=== PATIENT | male | born 1970 | race Caucasian/White ===

== ENCOUNTER 2022-07-21 11:37 | Emergency (ER) | payer BC ==
[2022-07-21] MEDS ORDERED: TDAP (DIPHTH,PERTUSS(ACELL),TET VAC) 0.5 ML VIAL IMVAC ONE (12:32)
[2022-07-21] MEDS ORDERED: LIDOCAINE 1% 20 ML MDV ONE (12:33)
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
[2022-07-21 13:53] VITALS: TEMP 97.8
[2022-07-21 13:54] VITALS: O2SAT 100
[2022-07-21 13:56] VITALS: BP 131/91
== END 2022-07-21 13:46 | disposition home or self-care (01) ==
LOC: ER 11:37
PROC: 0HQ1XZZ Repair Face Skin, External Approach (ICD-10-PCS; principal; 2022-07-21)
DX: S01.81XA Laceration without foreign body of other part of head, initial encounter (principal); S02.0XXA Fracture of vault of skull, initial encounter for closed fracture; G93.89 Other specified disorders of brain; F17.210 Nicotine dependence, cigarettes, uncomplicated; Z23 Encounter for immunization; Z88.3 Allergy status to other anti-infective agents
CPT/HCPCS: 70450; 72125; 70486; 76377; 90471; 99283; 12013; J2001

== ENCOUNTER 2022-07-22 09:31 | Emergency (ER) | payer BC ==
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
--- NOTE | 2022-07-22 09:44 | EDPHYS ---
Physician Documentation [facility] Name: Shahbaz Hanley Age: 52 yrs Sex: Male : 1970 Arrival Date: 07/22/2022 Time: 09:32 Bed 7 Private MD: ED Physician Walker Ogden HPI: 07/22 09:40 This 52 yrs old Male presents to ER via Ambulatory with complaints of Nausea, jh7 Dizziness, Nose Bleed. 09:40 Patient was diagnosed with a skull fracture with pneumocephalus yesterday. He left [facility] due to not wanting to be transferred. Stated that this morning his headache, nausea, and dizziness have worsened since yesterday. Also reports that he developed a nosebleed this morning. He agrees to transfer at this time.. Historical: - Allergies: 09:41 Vancomycin; aa5 - Home Meds: 09:42 None [Active]; aa5 - PMHx: 09:42 None; aa5 - PSHx: 09:42 None; aa5 - Immunization history:: Adult Immunizations unknown, Last tetanus immunization: up to date. - Social history:: Smoking status: Patient reports the use of cigarette tobacco products, 1 1/2 packs a day . ROS: 09:40 Constitutional: Negative for fever, chills, and weight loss, Eyes: Negative for injury, jh7 pain, redness, and discharge, Cardiovascular: Negative for chest pain, palpitations, and edema, Respiratory: Negative for shortness of breath, cough, wheezing, and pleuritic chest pain, Back: Negative for injury and pain, MS/Extremity: Negative for injury and deformity, Skin: Negative for injury, rash, and discoloration. 09:40 ENT: Positive for nose bleed. 09:40 Abdomen/GI: Positive for nausea, Negative for abdominal pain, vomiting, diarrhea. 09:40 Neuro: Positive for dizziness, headache, Negative for altered mental status, numbness, syncope, tingling, visual changes. 09:40 All other systems are negative. Exam: 09:40 Constitutional: This is a well developed, well nourished patient who is awake, alert, jh7 and in no acute distress. Eyes: Pupils equal round and reactive to light, extra-ocular motions intact. Lids and lashes normal. Conjunctiva and sclera are non-icteric and not injected. Cornea within normal limits. Periorbital areas with no swelling, redness, or edema. ENT: Nares patent. No nasal discharge, no septal abnormalities noted. Tympanic membranes are normal and external auditory canals are clear. Oropharynx with no redness, swelling, or masses, exudates, or evidence of obstruction, uvula midline. Mucous membranes moist. Neck: Trachea midline, no thyromegaly or masses palpated, and no cervical lymphadenopathy. Supple, full range of motion without nuchal rigidity, or vertebral point tenderness. No Meningismus. Cardiovascular: Regular rate and rhythm with a normal S1 and S2. No gallops, murmurs, or rubs. Normal PMI, no JVD. No pulse deficits. Respiratory: Lungs have equal breath sounds bilaterally, clear to auscultation and percussion. No rales, rhonchi or wheezes noted. No increased work of breathing, no retractions or nasal flaring. Abdomen/GI: Soft, non-tender, with normal bowel sounds. No distension or tympany. No guarding or rebound. No evidence of tenderness throughout. Back: No spinal tenderness. No costovertebral tenderness. Full range of motion. MS/ Extremity: Pulses equal, no cyanosis. Neurovascular intact. Full, normal range of motion. 09:40 Head/face: Noted is hematoma, that is moderate, of the left eye. 09:40 Skin: 5 cm sutured laceration present on left forehead with no signs or symptoms of infection. No bleeding present.. 09:40 Neuro: Orientation: is normal, to person, place, time \T\ situation. Mentation: is normal, Memory: is normal, Cranial nerves: grossly normal, Cerebellar function: is grossly normal, Motor: is normal, Sensation: is normal, Gait: is steady, at a normal pace. Vital Signs: 09:33 BP 141 / 95; Pulse 70; Resp 16 S; Temp 98.2(TE); Pulse Ox 99% on R/A; Weight 77.11 kg aa5 (R); Height 5 ft. 9 in. (175.26 cm) (R); 10:28 BP 126 / 95; Pulse 63; Resp 16; Pulse Ox 99% ; ll1 11:32 BP 132 / 89; Pulse 62; Resp 16; Pulse Ox 99% ; ll1 09:33 Body Mass Index 25.10 (77.11 kg, 175.26 cm) aa5 NIH Stroke Scale Scores: 09:40 NIHSS Score: 0 7 MDM: 09:[address] [facility] 10:18 Differential diagnosis: Pneumocephalus, skull fracture. Data reviewed: vital signs, [facility] nurses notes, lab test result(s), radiologic studies, CT scan. Consideration of Admission/Observation Patient was transferred for higher level of care. Management of patient was discussed with the following: Research Development Manager: Dr. Franz, neurosurgery. Counseling: I had a detailed discussion with the patient and/or guardian regarding: the historical points, exam findings, and any diagnostic results supporting the discharge/admit diagnosis, the need to transfer to another facility, for higher level of care, [facility] does not immediately have the required specialist. ED course: The patient was transferred to [facility] for neurosurgery. His case was discussed with Dr. Franz and she requested transfer under Dr. Pearce, neurosurgery. 07/22 09:40 Order name: CBC with Diff [facility] 07/22 09:40 Order name: BMP [facility] 07/22 09:40 Order name: PT-INR [facility] 07/22 10:00 Order name: CBC with Automated Diff; Complete Time: 10:09 EDMS 07/22 10:04 Order name: Protime (+INR); Complete Time: 10:09 EDMS 07/22 10:11 Order name: Basic Metabolic Panel; Complete Time: 10:12 EDMS 07/22 09:40 Order name: CT Head Brain wo Cont [facility] 07/22 09:52 Order name: IV Start; Complete Time: 09:53 ll1 07/22 10:20 Order name: CT; Complete Time: 10:21 EDMS Administered Medications: 09:53 Drug: Zofran (Ondansetron) 4 mg Route: IVP; Site: right forearm; ll1 10:27 Follow up: Response: No adverse reaction; Nausea is decreased ll1 Disposition: 13:38 Co-signature as Attending Physician, Walker Ogden MD I agree with the assessment and kdr plan of care. Disposition Summary: 07/22/22 09:43 Transfer Ordered Transfer Location: [place] [id number] Reason: Higher level of care [facility] Condition: Fair [facility] Problem: new [facility] Symptoms: have worsened [facility] Accepting Physician: Dr. Paerce Neurosurgery(07/22/22 11:32) ll1 Diagnosis - Pneumocephalus [facility] - Skull fracture [facility] Forms: - Medication Reconciliation Form [facility] - SBAR form [facility] NIH Stroke Scale - NIH Stroke Score Date: 07/22/2022 Time: 09:40 Total Score = 0 1a. Level of Consciousness (LOC) - 0(Alert) 1b. Level of Consciousness (LOC) (Month \T\ Age) - 0(Both) 1c. LOC Commands (Open \T\ Closes Eyes/Salt Grinder) - 0(Both) 2. Best Gaze (Lateral Gaze Paresis) - 0(Normal) 3. Visual Field Loss - 0(No visual loss) 4. Facial Palsy - 0(Normal) 5a. Left Arm: Motor (10-second hold) - 0(No drift) 5b. Right Arm: Motor (10-second hold) - 0(No drift) 6a. Left Leg: Motor (5-second hold - always test supine) - 0(No drift) 6b. Right Leg: Motor (5-second hold - always test supine) - 0(No drift) 7. Limb Ataxia (finger/nose \T\ heel/sharma - test with eyes open) - 0(Absent) 8. Sensory Loss (pinprick arms/legs/face) - 0(Normal) 9. Best Language: Aphasia (description/naming/reading) - 0(No aphasia) 10. Dysarthria (speech clarity - read or repeat words) - 0(Normal) 11. Extinction and Inattention (visual/tactile/auditory/spatial/personal) - 0(No abnormality) Initials: [facility] Signatures: Dispatcher [employer] EDWalker Orellana MD MD kdr Calderon, Audri, RN RN aa5 Ronald Mcpherson RN RN ll1 Adrianna Maradiaga FNP FNP [facility] Corrections: (The following items were deleted from the chart) 10:24 09:43 [place] [id number] 10:27 10:24 Dr. Franz, Dr. Pearce Neurosurgery [place] [address] 11:32 10:27 Dr. Pearce Neurosurgery [facility]
[2022-07-22] MEDS ORDERED: ONDANSETRON 4 MG/2 ML VIAL ONE (09:48)
[2022-07-22 09:59] LABS: Absolute Lymphocytes (CBC) 1.3 K/uL (0.7-4.9); Hematocrit 49.9 % (39.6-49.0); Lymphocytes % 15.6 % (15.3-44.8); MCV 90.8 fL (80-100); MPV 7.4 fL (7.6-11.3)
[2022-07-22 10:04] LABS: Protime INR 1.03
--- NOTE | 2022-07-22 10:19 | RAD REPORT ---
EXAM DESCRIPTION: CT - Head Brain Wo Cont - 07/22/2022 9:58 am CLINICAL HISTORY: Dizziness COMPARISON: July 31, 2022 TECHNIQUE: Computed axial tomography of the head was obtained. IV contrast was not requested. All CT scans are performed using dose optimization technique as appropriate and may include automated exposure control or mA/KV adjustment according to patient size. FINDINGS: Nondisplaced fracture left frontal bone/left superior orbital rim unchanged. Left preseptal/left frontal scalp swelling without significant change Small amount of pneumocephalus is diminished Intracranial bleed is not seen. No extra-axial fluid collection. The ventricles are normal in caliber No significant hypodensity within the brain Fluid within the sinuses/ mastoids is not seen. IMPRESSION: Small amount of pneumocephalus has diminished since the prior exam Nondisplaced fracture left frontal bone/left support orbital rim No intracranial bleed seen
[2022-07-22 11:57] VITALS: TEMP 98.2; O2SAT 99
[2022-07-22 12:00] VITALS: BP 132/89
== END 2022-07-22 11:32 | disposition short-term general hospital (02) ==
LOC: ER 09:31
DX: R51.9 Headache, unspecified (principal); S02.91XS Unspecified fracture of skull, sequela; G93.89 Other specified disorders of brain
CPT/HCPCS: 85025; 80048; 36415; 85610; 70450; 96374; 99285; J2405